=== PATIENT | female | born 1990 | race Caucasian/White ===

== ENCOUNTER 2021-01-29 09:26 | Outpatient (CLI) | payer OTHER ==
--- NOTE | 2021-01-29 10:19 | Ultrasound Report ---
PROCEDURE: OB First Trimester INDICATIONS: POSITIVE TEST OUTSIDE/PRIOR DATING DATA: Last menstrual period (LMP): December 02, 2020. LMP-based estimated date of delivery (BRITTNEY): September 08, 2021. First dating scan (date and location): [facility], January 29, 2021. Estimated date of delivery (BRITTNEY) from first dating scan: September 05, 2021. The below data below was generated using the ultrasound BRITTNEY of September 05, 2021 TECHNIQUE: Real-time scanning was performed of the fetus and maternal pelvic organs, with image documentation. COMPARISON: None. FINDINGS: A 1.8 x 1.1 x 1.1 cm hypoechoic area is seen adjacent to the gestational sac, compatible w ith subchorionic hemorrhage. Embryo: The crown-rump length measures 2.09 cm, compatible with an 8 week, 5 day gestation. Heart rate: 178 bpm. Measurement variability in dating: +/- 4 weeks by LMP, +/- 7 days by mean sac diameter (use before 6 weeks gestation if crown-rump length not able to be measured), +/- 5 days by crown-rump length (6-12 weeks gestation). Maternal organs: Ovaries are within normal limits. IMPRESSION: Live single intrauterine gestation as detailed above. Reviewed by: Wilton Boswell MD on 01/29/2021 10:18 AM PDT Approved by: Wilton Boswell MD on 01/29/2021 10:18 AM PDT Station ID: [id number]
== END 2021-01-29 09:27 | disposition home or self-care (01) ==
LOC: DI 09:26
PROVIDERS: ATTEND Nurse Practitioner Obstetrics & Gynecology
DX: Z34.91 Encounter for supervision of normal pregnancy, unspecified, first trimester (principal); Z36.89 Encounter for other specified antenatal screening
CPT/HCPCS: 36415; 85025; 86592; 86762; 86787; 86803; 86850; 86900; 86901; 87340; 87389

== ENCOUNTER 2021-01-29 09:55 | Outpatient (CLI) | payer OTHER ==
[2021-01-29 10:19] LABS: BASOPHILS % (AUTO) 0.4 %; EOSINOPHILS % (AUTO) 0.5 %; HCT - HEMATOCRIT 37.7 % (37.0-47.0); HGB - HEMOGLOBIN 11.8 g/dL (12.0-16.0); LYMPHOCYTES # (AUTO) 1.6 10^3/uL (1.5-3.5); LYMPHOCYTES % (AUTO) 19.4 %; MEAN CORPUSCULAR HEMOGLOBIN 21.5 pg (27.0-31.0); MEAN CORPUSCULAR HGB CONC 31.3 g/dL (32.0-36.0); MEAN CORPUSCULAR VOLUME 68.5 fL (81.0-99.0); MEAN PLATELET VOLUME 10.1 fL (7.9-10.8); MONOCYTES # (AUTO) 0.6 10^3/uL (0.0-1.0); MONOCYTES % (AUTO) 7.1 %; NEUTROPHILS # (AUTO) 5.9 10^3/uL (1.5-6.6); NEUTROPHILS % (AUTO) 72.2 %; PLT - PLATELET COUNT 344 10^3/uL (130-450); RED CELL DISTRIBUTION WIDTH 14.9 % (12.0-15.0); WHITE BLOOD COUNT 8.1 x10^3/uL (4.8-10.8)
[2021-01-29 10:39] LABS: PLATELET ESTIMATE, MANUAL NORMAL (130-450,000) (NORMAL); PLATELET MORPHOLOGY NORMAL APPEARANCE (NORMAL); RBC MORPHOLOGY (MULTIPLE) 3+ MICROCYTOSIS (NORMAL); SLIDE REVIEW? Indicated
[2021-01-30 09:56] LABS: HEPATITIS B SURFACE ANTIGEN NON-REACTIVE (NON-REACTIVE)
[2021-01-30 10:02] LABS: HEPATITIS C ANTIBODY NON-REACTIVE (NON-REACTIVE)
[2021-01-30 13:31] LABS: HIV AG/AB 4TH GEN NON-REACTIVE (NON-REACTIVE)
== END 2021-01-29 09:56 | disposition home or self-care (01) ==
LOC: LAB 09:55
PROVIDERS: ATTEND Nurse Practitioner Obstetrics & Gynecology
DX: Z34.90 Encounter for supervision of normal pregnancy, unspecified, unspecified trimester (principal); Z36.89 Encounter for other specified antenatal screening
CPT/HCPCS: 36415; 85025; 86592; 86762; 86787; 86803; 86850; 86900; 86901; 87340; 87389

== ENCOUNTER 2021-01-30 19:33 | Emergency (ER) | payer OTHER ==
[2021-01-30] MEDS ORDERED: SODIUM CHLORIDE 0.9% 1,000 ML IV STA (19:43)
[2021-01-30 19:59] LABS: BASOPHILS % (AUTO) 0.4 %; EOSINOPHILS % (AUTO) 0.1 %; HCT - HEMATOCRIT 37.5 % (37.0-47.0); HGB - HEMOGLOBIN 11.8 g/dL (12.0-16.0); LYMPHOCYTES # (AUTO) 1.9 10^3/uL (1.5-3.5); LYMPHOCYTES % (AUTO) 22.8 %; MEAN CORPUSCULAR HEMOGLOBIN 21.3 pg (27.0-31.0); MEAN CORPUSCULAR HGB CONC 31.5 g/dL (32.0-36.0); MEAN CORPUSCULAR VOLUME 67.8 fL (81.0-99.0); MEAN PLATELET VOLUME 10.8 fL (7.9-10.8); MONOCYTES # (AUTO) 0.7 10^3/uL (0.0-1.0); MONOCYTES % (AUTO) 7.7 %; NEUTROPHILS # (AUTO) 5.8 10^3/uL (1.5-6.6); NEUTROPHILS % (AUTO) 68.5 %; PLT - PLATELET COUNT 353 10^3/uL (130-450); RED BLOOD COUNT 5.53 10^6/uL (4.20-5.40); RED CELL DISTRIBUTION WIDTH 14.7 % (12.0-15.0); WHITE BLOOD COUNT 8.5 x10^3/uL (4.8-10.8)
--- NOTE | 2021-01-30 20:10 | ED Physician Documentation ---
History of Present Illness - Stated complaint Stated Complaint: NAUSEA/VOMITING/OB - Chief complaint Chief Complaint: Abd Pain - History obtained from History obtained from: Patient - History of Present Illness Timing: Today, How many days ago (several) Pain level max: 0 Pain level now: 0 - Additonal information Additional information: Patient is a 30-year-old female, approximately 8 weeks . She states that she has had vomiting fairly consistently for the past 2 to 3 days. Does not have any medication for vomiting at home. States unable to keep anything down. Concerned about dehydration. No vaginal bleeding. No abdominal pain. No contractions. Worse with eating and drinking, nothing makes it better. Review of Systems Constitutional: denies: Fever, Chills Throat: denies: Sore throat Respiratory: denies: Cough GI: reports: Nausea, Vomiting. denies: Abdominal Pain, Diarrhea, Hematemesis, Bloody / black stool : reports: Now EGA. denies: Dysuria, Frequency, Hesitancy Skin: denies: Rash PD PAST MEDICAL HISTORY - Past Medical History Past Medical History: No - Past Surgical History Past Surgical History: No - Present Medications Home Medications: Ambulatory Orders Medication Instructions Recorded Confirmed Doxylamine/Pyridoxine HCl 2 tab PO QPM #60 tab 01/30/21 [Diclegis Dr 10-10 mg Tablet] Ondansetron Odt [Zofran] 4 mg TL Q6H PRN #10 tablet 01/30/21 Pnv No.121/Iron/Folic Acid 1 tab PO DAILY 01/30/21 01/30/21 [ Multivitamin Tablet] - Allergies Allergies/Adverse Reactions: Allergies Allergy/AdvReac Type Severity Reaction Status Date / Time No Known Drug Allergies Allergy Verified 01/30/21 19:44 - Living Situation Living Situation: reports: With family Living Arrangement: reports: At home - Social History Does the pt have substance abuse?: No PD ED PE NORMAL - Vitals Vital signs reviewed: Yes - General General: Alert and oriented X 3, No acute distress - HEENT HEENT: Moist mucous membranes, Pharynx benign - Neck Neck: Supple, no meningeal sign - Cardiac Cardiac: RRR, Strong equal pulses - Respiratory Respiratory: No respiratory distress, Clear bilaterally - Abdomen Abdomen: Soft, Non tender, Non distended - Derm Derm: Warm and dry - Extremities Extremities: No edema - Neuro Neuro: Alert and oriented X 3 - Psych Psych: Normal mood, Normal affect Results - Vitals Vitals: Vital Signs - 24 hr 01/30/21 01/30/21 01/30/21 19:37 19:44 21:08 Temperature 36.9 C 36.9 C 36.8 C Heart Rate 88 88 86 Respiratory 14 14 14 Rate Blood Pressure 128/88 H 128/88 H 124/82 H O2 Saturation 100 100 100 Oxygen O2 Source Room air - Labs Labs: Laboratory Tests 01/30/21 01/30/21 01/30/21 19:50 19:50 21:07 WBC 8.5 RBC 5.53 H Hgb 11.8 L Hct 37.5 MCV 67.8 L MCH 21.3 L MCHC 31.5 L RDW 14.7 Plt Count 353 MPV 10.8 Neut # (Auto) 5.8 Lymph # (Auto) 1.9 [place] # (Auto) 0.7 Eos # (Auto) 0.0 Baso # (Auto) 0.0 Absolute Nucleated RBC 0.00 Nucleated RBC % 0.0 Manual Slide Review Indicated Platelet Estimate NORMAL (130-450,000) Platelet Morphology NORMAL APPEARANCE RBC Morph Micro Appear 1+ HYPOCHROMASIA Sodium 137 Potassium 3.6 Chloride 103 Carbon Dioxide 24 Anion Gap 10.0 BUN 6 Creatinine 0.5 Estimated GFR (MDRD) 146 Glucose 96 Calcium 9.8 Total Bilirubin 0.6 AST 18 ALT 18 Alkaline Phosphatase 42 Total Protein 8.0 Albumin 4.4 Globulin 3.6 Albumin/Globulin Ratio 1.2 Lipase 28 Urine Color YELLOW Urine Clarity CLEAR Urine pH 6.0 Ur Specific [place] >=1.030 H Urine Protein NEGATIVE Urine Glucose (UA) NEGATIVE Urine Ketones >=80 H Urine Occult Blood NEGATIVE Urine Nitrite NEGATIVE Urine Bilirubin NEGATIVE Urine Urobilinogen 0.2 (NORMAL) Ur Leukocyte Esterase SMALL H Urine RBC 0-5 Urine WBC 6-10 H Ur Squamous Epith Cells MOD Squamous H Urine Bacteria Moderate H Urine Mucus Few Strands Ur Microscopic Review INDICATED Urine Culture Comments NOT INDICATED PD MEDICAL DECISION MAKING - ED course Complexity details: reviewed results, re-evaluated patient, considered differential, d/w patient ED course: Patient is well-appearing, nontoxic. Afebrile. Given IV fluids. No significant lab abnormalities. No electrolyte abnormalities. We will place on Zofran and Diclegis for home. Discussed that there may be a possible increased risk of cleft palate with Zofran. There are several studies however that to refute this. Patient will follow up with her OB for further care. Patient counseled regarding signs and symptoms for which I believe and urgent re- evaluation would be necessary. Patient with good understanding of and agreement to plan and is comfortable going home at this time This document was made in part using voice recognition software. While efforts are made to proofread this document, sound alike and grammatical errors may occur. Departure - Departure Disposition: 01 Home, Self Care Clinical Impression: Vomiting affecting Condition: Good Instructions: ED Preg Morning Sickness Follow-Up: Karen Singh CNM, ESL PROFESSOR [Primary Care Provider] - Within 1 week Prescriptions: Doxylamine/Pyridoxine HCl [Diclegis Dr 10-10 mg Tablet] 2 tab PO QPM #60 tab Ondansetron Odt [Zofran] 4 mg TL Q6H PRN #10 tablet PRN Reason: Nausea / Vomiting Comments: Please follow-up with your OB for further care. Your prescriptions were sent to [facility] in [place]. Please return if you worsen. Discharge Date/Time: 01/30/21 21:08
[2021-01-30 20:23] LABS: PLATELET ESTIMATE, MANUAL NORMAL (130-450,000) (NORMAL); PLATELET MORPHOLOGY NORMAL APPEARANCE (NORMAL); SLIDE REVIEW? Indicated
[2021-01-30 20:24] LABS: ALBUMIN 4.4 g/dL (3.2-5.5); ALBUMIN/GLOBULIN RATIO 1.2 (1.0-2.2); BILIRUBIN,TOTAL 0.6 mg/dL (0.2-1.0); CALCIUM 9.8 mg/dL (8.5-10.3); CREATININE 0.5 mg/dL (0.4-1.0); POTASSIUM 3.6 mmol/L (3.5-5.0)
[2021-01-30 21:09] VITALS: BP 124/82
[2021-01-30 21:13] LABS: BILIRUBIN,URINE NEGATIVE (NEGATIVE); GLUCOSE, URINE (UA) NEGATIVE (NEGATIVE); KETONES,URINE (UA) >=80 mg/dL (NEGATIVE); LEUKOCYTE ESTERASE, URINE SMALL (NEGATIVE); NITRITE,URINE NEGATIVE (NEGATIVE); OCCULT BLOOD,URINE NEGATIVE (NEGATIVE); PROTEIN,URINE NEGATIVE (NEGATIVE); UROBILINOGEN,URINE 0.2 (NORMAL) E.U./dL (NORMAL)
[2021-01-30 21:15] LABS: CLARITY,URINE CLEAR (CLEAR)
[2021-01-30 21:21] LABS: BACTERIA,URINE Moderate /HPF (None Seen); MUCUS,URINE Few Strands; RBC,URINE 0-5 /HPF (0-5); SQUAMOUS EPITHELIAL CELL,UR MOD Squamous (<= Few)
== END 2021-01-30 21:08 | disposition home or self-care (01) ==
LOC: ED 19:33
DX: O21.9 Vomiting of pregnancy, unspecified (principal); Z3A.08 8 weeks gestation of pregnancy
CPT/HCPCS: 36415; 80053; 81001; 81003; 83690; 85025; 87086; 99283; 99284

== ENCOUNTER 2021-02-07 08:00 | Outpatient (CLI) | payer OTHER ==
[2021-02-08 20:26] LABS: CHLAMYDIA TRACHOMATIS DNA NEGATIVE (NEGATIVE); NEISSERIA GONORRHOEAE DNA NEGATIVE (NEGATIVE); TRICHOMONAS VAGINALIS DNA NEGATIVE (NEGATIVE)
== END 2021-02-07 23:59 | disposition home or self-care (01) ==
LOC: LAB.WC 08:00
PROVIDERS: ATTEND Nurse Practitioner Obstetrics & Gynecology
DX: Z34.90 Encounter for supervision of normal pregnancy, unspecified, unspecified trimester (principal)
CPT/HCPCS: 87491; 87591; 87661

== ENCOUNTER 2021-02-19 12:15 | Outpatient (CLI) | payer OTHER ==
[2021-02-23 11:06] LABS: CIGARETTE SMOKER? NOT GIVEN; DONOR AGE: EGG RETRIEVAL NOT GIVEN; DONOR EGG NO; HX OF NEURAL TUBE DEFECTS NO; INSULIN DEPEND DIABETIC NO; MATERNAL WEIGHT 135 lbs; NUMBER OF FETUSES 1; PREV PREGNANCY DOWN SYND NO
== END 2021-02-19 12:16 | disposition home or self-care (01) ==
LOC: LAB.N 12:15
PROVIDERS: ATTEND Nurse Practitioner Obstetrics & Gynecology
DX: Z36.8A Encounter for antenatal screening for other genetic defects (principal)

== ENCOUNTER 2021-04-02 08:00 | Outpatient (CLI) | payer OTHER | END 2021-04-02 23:59 | LOC: LAB 08:00 | PROVIDERS: ATTEND Nurse Practitioner Obstetrics & Gynecology | DX: Z36.8A Encounter for antenatal screening for other genetic defects (principal) | CPT/HCPCS: 82105; 82677; 84163; 84702; 86336 ==

== ENCOUNTER 2021-04-03 10:41 | Outpatient (CLI) | payer OTHER | END 2021-04-03 10:42 | disposition home or self-care (01) | LOC: LAB.N 10:41 | PROVIDERS: ATTEND Nurse Practitioner Obstetrics & Gynecology | DX: Z53.9 Procedure and treatment not carried out, unspecified reason (principal) ==

== ENCOUNTER 2021-04-20 18:39 | Outpatient (CLI) | payer OTHER ==
--- NOTE | 2021-04-20 21:16 | Ultrasound Report ---
PROCEDURE: OB Detailed Eval INDICATIONS: NORMAL OUTSIDE/PRIOR DATING DATA: Last menstrual period (LMP): 12/02/2020. LMP-based estimated date of delivery (BRITTNEY): 09/08/2021. First dating scan (date and location): 01/29/2021. Estimated date of delivery (BRITTNEY) from first dating scan: 09/05/2021. The below data below was generated using the study generated BRITTNEY of 09/05/2021 TECHNIQUE: Real-time scanning was performed of the fetus, with image documentation and biometric measurements. COMPARISON: 01/29/2021. FINDINGS: General: A single living intrauterine gestation is present. Presentation: Transverse with head towards maternal right side. Placenta: Placental position is anterior, without previa. Amniotic fluid index: 11.5 cm, normal for gestational age. heart rate: 160 beats per minute. Maternal cervical canal: 4.6 cm long and is closed; normal length is 2.5 cm or more. biometrics: Biparietal diameter: 4.56 cm, 19 weeks, 5 days Head circumference: 17.68 cm, 20 weeks, 1 day Abdominal circumference: 15.47 cm, 20 weeks, 5 days Femur length: 3.30 cm, 20 weeks, 2 days Estimated gestational age from initial scan: 20 weeks, 2 days Composite gestational age from present scan: 20 weeks, 1 day Estimated weight and percentile: 353.9 g, 54.1% Measurement variability in biometric dating: +/- 10 days from 12-20 weeks gestation, +/- 2 weeks from 20-30 weeks gestation, +/- 3 weeks at 30 weeks gestation or later. Anatomic survey: Neuro: Ventricles are normal at less than 10 mm. Cisterna magna is normal at 3-11 mm. Cerebellum i s normal in size and morphology. Nuchal skin fold: Normal at less than 6 mm between 14 and 20 weeks gestational age. Face: Nose and lips, facial profile are normal. Spine: No evidence for spina bifida. Heart: 4-chambered heart is present, with normal ventricular outflow tracts. Diaphragm: chest and diaphragm are not well seen due to position. Stomach: Left-sided stomach is present. Kidneys: No hydronephrosis. Normal is less than 5 mm in 2nd trimester, less than 7 mm in 3rd trimester. Cord: 3 vessel cord has orthotopic insertion. Bladder: Normal in size. Extremities: All 4 extremities are visualized. IMPRESSION: 1. Single live intrauterine with fetus in transverse presentation. heart rate is 160 bpm. Normal amount of amniotic fluid. Normal growth. Estimated weight is at 54.1%. 2. chest and diaphragm are not well seen due to position. Rest of the anatomic surv ey is normal. Reviewed by: Guido Santo MD on 04/20/2021 9:14 PM PST Approved by: Guido Santo MD on 04/20/2021 9:14 PM PST Station ID: [id number]
--- NOTE | 2021-04-21 09:32 | Discharge Plan ---
Discharge Plan Problem Reviewed?: Yes Disposition: Home, Self Care Condition: Good Diet: Regular Activity Restrictions: No Restrictions Shower Restrictions: No Driving Restrictions: No Weight Bearing: Full Weight Instruction Topics: Vaginal No Smoking: If you smoke, Please STOP! Call for help. Follow-up with: Karen Singh CNM, ARNP [Provider Admit Priv/Credential] - 1 Week
--- NOTE | 2021-04-21 09:47 | DISCHARGE SUMMARY ---
Discharge Summary Condition at Discharge: Good Discharge Disposition: 01 Home, Self Care - HOSPITAL COURSE Hospital Course: Date of Admission: 04/19/21 Date of Discharge: 04/21/2021 Diagnosis on Admission: 34yo @ 41.0wks gestation by LMP c/w 8.6wk U/S Postdates GBS positive FHR Category I Diagnosis on Discharge: 34yo PPD#2 s/p TSVD viable female 1st degree perineal laceration normal recovery Brief history: She is a patient of [facility] who presented on 04/19/2021 for medical induction of labor secondary to postdates . She received 1 dose of 50mcg BC misoprostol for pre-induction cervical ripening followed pitocin induction of labor for a maximum infusion rate of 3mU/mL. FHR pattern demonstrated Category I pattern with occasional periods of Category II secondary to tachycardia which resolved with IV fluid bolus. AROM occurred at 1700 and was noted to be a moderate amount of moderate meconium stained amniotic fluid. She was noted to be GBS positive and received Ampicillin per protocol for adequate GBS prophylaxis. Pt progressed to spontaneously deliver a viable female on 04/19/2021 @ 2357 in BISHOP position followed by 1 minutes shoulder dystocia over 1st degree perineal laceration. 's were 7/9 at 1 and 5 minutes respectively. EBL initially 200mL followed by delayed pp blood loss of additional 358mL. She was given BC misoprostol and IM methergine per protocol and bleeding resolved. She has been doing well in her course. She is ambulating and tolerating a regular diet. She is urinating without difficulty and her lochia is normal. Her pain is well controlled with oral medications. She is bonding well with her baby and she is without difficulty. She will be discharged home today on day #2 with instruction to continue taking her vitamin while and to continue taking ibuprofen and tylenol OTC as needed for pain management. In addition, we discussed taking OTC docusate sodium as needed. She intends to follow up with myself at [facility] in 1 week for routine visit or sooner if needed. She has been given precautions to call if she has any worsening fevers, chills, abdominal pain, increased vaginal bleeding, or foul smelling vaginal lochia. She verbalized understanding and agrees to above plan. She denies further questions or concerns at this time. Physical Exam: Normocephalic, atraumatic. Heart RRR w/o M/G/R, lungs CTAB, abdomen soft and nontender, perineum intact and repair without edema, light lochia rubra, bilateral LE's trace edema. - ALLERGIES Allergies/Adverse Reactions: Allergies Allergy/AdvReac Type Severity Reaction Status Date / Time No Known Drug Allergies Allergy Verified 01/30/21 19:44 - MEDICATIONS Home Medications: Ambulatory Orders Medication Instructions Recorded Confirmed Doxylamine/Pyridoxine HCl 2 tab PO QPM #60 tab 01/30/21 [Willam Mirza 10-10 mg Tablet] Ondansetron Odt [Zofran] 4 mg TL Q6H PRN #10 tablet 01/30/21 Pnv No.121/Iron/Folic Acid 1 tab PO DAILY 01/30/21 01/30/21 [ Multivitamin Tablet]
== END 2021-04-20 18:40 | disposition home or self-care (01) ==
LOC: DI 18:39
PROVIDERS: ATTEND Nurse Practitioner Obstetrics & Gynecology
DX: Z34.92 Encounter for supervision of normal pregnancy, unspecified, second trimester (principal); Z36.8A Encounter for antenatal screening for other genetic defects; Z3A.20 20 weeks gestation of pregnancy

== ENCOUNTER 2021-05-18 11:07 | Outpatient (CLI) | payer OTHER ==
--- NOTE | 2021-05-18 16:05 | Ultrasound Report ---
PROCEDURE: OB F/U or Repeat INDICATIONS: SUPERVISION OF OUTSIDE/PRIOR DATING DATA: Last menstrual period (LMP): 12/02/2020. LMP-based estimated date of delivery (BRITTNEY): 09/08/2021. First dating scan (date and location): 01/29/2021. Estimated date of delivery (BRITTNEY) from first dating scan: 09/05/2021. The below data below was generated using the ultrasound BRITTNEY of 09/05/2021. TECHNIQUE: Real-time scanning was performed of the fetus, with image documentation and biometric measurements. Endovaginal scanning: Not performed. COMPARISON: Ultrasound 04/20/2021. FINDINGS: General: A single living intrauterine gestation is present. Presentation: Breech Placenta: Placental position is anterior, without previa. Amniotic fluid index: 12.1 cm, normal for gestational age. Largest pocket 3.6 cm. heart rate: 138 beats per minute. Maternal cervical canal: 4.6 cm long; normal length is 2.5 cm or more. Estimated gestational age from initial scan: 24 weeks 2 days. Other: diaphragm/chest are normal in appearance. IMPRESSION: 1. Lambert living intrauterine at 24 weeks 2 days based on prior ultrasound. 2. Normal placenta and amniotic fluid. 3. diaphragm/chest are normal in appearance. Completed anatomic survey. Reviewed by: Modesto Lundy MD on 05/18/2021 4:04 PM PST Approved by: Modesto Lundy MD on 05/18/2021 4:04 PM PST Station ID: [id number]
== END 2021-05-18 11:08 | disposition home or self-care (01) ==
LOC: DI 11:07
PROVIDERS: ATTEND Nurse Practitioner Obstetrics & Gynecology
DX: Z34.92 Encounter for supervision of normal pregnancy, unspecified, second trimester (principal); Z36.89 Encounter for other specified antenatal screening

== ENCOUNTER 2021-06-06 10:06 | Outpatient (CLI) | payer OTHER ==
[2021-06-06 11:16] LABS: HCT - HEMATOCRIT 33.4 % (37.0-47.0); HGB - HEMOGLOBIN 10.4 g/dL (12.0-16.0); MEAN CORPUSCULAR HEMOGLOBIN 21.5 pg (27.0-31.0); MEAN CORPUSCULAR HGB CONC 31.1 g/dL (32.0-36.0); RED BLOOD COUNT 4.84 10^6/uL (4.20-5.40); RED CELL DISTRIBUTION WIDTH 15.5 % (12.0-15.0); WHITE BLOOD COUNT 9.4 x10^3/uL (4.8-10.8)
== END 2021-06-06 10:07 | disposition home or self-care (01) ==
LOC: LAB 10:06
PROVIDERS: ATTEND Nurse Practitioner Obstetrics & Gynecology
DX: Z34.90 Encounter for supervision of normal pregnancy, unspecified, unspecified trimester (principal); Z36.89 Encounter for other specified antenatal screening
CPT/HCPCS: 36415; 82950; 85027

== ENCOUNTER 2021-06-15 08:32 | Outpatient (CLI) | payer OTHER ==
[2021-06-15 09:00] LABS: GTT GLUCOSE,FASTING 86 mg/dL (70-100)
== END 2021-06-15 08:33 | disposition home or self-care (01) ==
LOC: LAB 08:32
PROVIDERS: ATTEND Obstetrics & Gynecology
DX: Z34.90 Encounter for supervision of normal pregnancy, unspecified, unspecified trimester (principal)
CPT/HCPCS: 36415; 82951; 82952

== ENCOUNTER 2021-06-26 10:16 | Outpatient (CLI) | payer OTHER | END 2021-06-26 10:17 | disposition home or self-care (01) | LOC: LAB.N 10:16 | PROVIDERS: ATTEND Obstetrics & Gynecology | DX: Z86.2 Personal history of diseases of the blood and blood-forming organs and certain disorders involving the immune mechanism (principal) | CPT/HCPCS: 36415; 81599; 82728; 83020; 85014; 85018; 85041 ==

== ENCOUNTER 2021-07-17 12:30 | Outpatient (CLI) | payer OTHER ==
[2021-07-17 17:55] LABS: HCT - HEMATOCRIT 35.6 % (37.0-47.0); HGB - HEMOGLOBIN 10.9 g/dL (12.0-16.0); MEAN CORPUSCULAR HEMOGLOBIN 20.8 pg (27.0-31.0); MEAN CORPUSCULAR HGB CONC 30.6 g/dL (32.0-36.0); MEAN CORPUSCULAR VOLUME 67.9 fL (81.0-99.0); MEAN PLATELET VOLUME 10.1 fL (7.9-10.8); RED BLOOD COUNT 5.24 10^6/uL (4.20-5.40); RED CELL DISTRIBUTION WIDTH 14.9 % (12.0-15.0); WHITE BLOOD COUNT 10.7 x10^3/uL (4.8-10.8)
== END 2021-07-17 12:31 | disposition home or self-care (01) ==
LOC: LAB.N 12:30
PROVIDERS: ATTEND Nurse Practitioner Obstetrics & Gynecology
DX: O99.019 Anemia complicating pregnancy, unspecified trimester (principal)
CPT/HCPCS: 36415; 85027